=== PATIENT | male | born 1990 ===

== ENCOUNTER 2025-01-31 06:40 | Day surgery (SDC) | payer BC, SELFPAY ==
[2025-01-31 08:40] VITALS: BMI 28.7
[2025-01-31 08:41] VITALS: BP 128/82; BMI 28.7
[2025-01-31] MEDS: NORMOSOL-R/PLASMALYTE-A 1000 IV (08:47)
[2025-01-31 12:46] VITALS: BP 109/69
[2025-01-31 13:11] VITALS: BP 118/78
[2025-01-31 13:24] VITALS: BP 118/74
[2025-01-31 13:35] VITALS: BP 125/70
[2025-01-31 13:36] VITALS: BP 125/70
== END 2025-01-31 13:42 | disposition home or self-care (01) ==
LOC: SDS 06:40
PROVIDERS: ATTENDING PHYSICIAN Otolaryngology
DX: J34.2 Deviated nasal septum (principal); J34.3 Hypertrophy of nasal turbinates; J30.9 Allergic rhinitis, unspecified
CPT/HCPCS: 30802; 30520